=== PATIENT | female | born 1955 | race Asian ===

== ENCOUNTER 2019-02-11 06:51 | Day surgery (SDC) | payer OTHER ==
[~2019-02-11] VITALS: Ht 160 cm; Wt 61.2 kg
[2019-02-11 07:19] VITALS: BP 147/82
[2019-02-11 10:36] VITALS: BP 122/73
== END 2019-02-11 10:20 | disposition home or self-care (01) ==
LOC: DS 06:51 → GI 08:00 → OR 08:00 → DS 10:20
DX: Z12.11 Encounter for screening for malignant neoplasm of colon (principal); K57.30 Diverticulosis of large intestine without perforation or abscess without bleeding; Z79.899 Other long term (current) drug therapy; Z78.0 Asymptomatic menopausal state; Z98.890 Other specified postprocedural states
CPT/HCPCS: 45378; J1200; J1610; J2250; J2310; J3010; J3490